=== PATIENT | female | born 1975 | race Caucasian/White ===

== ENCOUNTER → 2023-10-15 06:26 | Day surgery (SDC) | payer OTHER, SELFPAY | LOC: GI 06:26 | PROVIDERS: ATTENDING PHYSICIAN Specialist | DX: Z12.11 Encounter for screening for malignant neoplasm of colon (principal); K57.30 Diverticulosis of large intestine without perforation or abscess without bleeding; D12.2 Benign neoplasm of ascending colon; K63.5 Polyp of colon; Z80.0 Family history of malignant neoplasm of digestive organs | CPT/HCPCS: 45380; 88305 ==

== ENCOUNTER 2025-05-05 06:17 | Day surgery (SDC) | payer OTHER, SELFPAY | END 2025-05-05 14:56 | disposition home or self-care (01) | LOC: GI 06:17 | PROVIDERS: ATTENDING PHYSICIAN Specialist | DX: R12 Heartburn (principal); R13.10 Dysphagia, unspecified; K22.2 Esophageal obstruction; I89.0 Lymphedema, not elsewhere classified; K29.80 Duodenitis without bleeding; R89.7 Abnormal histological findings in specimens from other organs, systems and tissues | CPT/HCPCS: 43249; 43239; 88305 ==

== ENCOUNTER → 2025-06-02 08:43 | Outpatient (REF) | payer OTHER, SELFPAY | LOC: RAD 08:43 | PROVIDERS: ATTENDING PHYSICIAN Specialist; FAMILY PHYSICIAN Nurse Practitioner | DX: R10.12 Left upper quadrant pain (principal) | CPT/HCPCS: 74177; Q9967 ==